=== PATIENT | male | born 1955 | race Caucasian/White ===

== ENCOUNTER 2018-05-02 10:54 | Emergency (ER) | payer OTHER ==
[2018-05-02] MEDS ORDERED: Ibuprofen TAB* 600 MG PO ONE (11:06)
--- NOTE | 2018-05-02 11:17 | ED ---
Back Pain - HPI Summary HPI Summary: Patient is an otherwise healthy 63-year-old male presenting to the ED after a fall at work hitting a steel pipe beam with his lower back. He is endorsing at 5/10 pain to the lumbar spine which she states is approximately 10 cm in width. He denies any other pain or injuries. Denies hitting his head. He does not take any medication [employer]. He does not take any medications at baseline. He states he has otherwise healthy and has never injured his back previously. He was able to ambulate immediately following the accident, worse with flexion and extension, better with rest. Denies any weakness. Denies any bladder or bowel dysfunction. Denies any numbness or tingling bilaterally to the lower extremities. - History of Current Complaint Chief Complaint: EDBackInjuryPain Stated Complaint: FALL BACK PAIN Time Seen by Provider: 05/02/18 10:56 Onset/Duration: Sudden Onset Onset/Duration: Started Minutes Ago Timing: Constant Back Pain Location: Is Discrete @ - low back Severity Initially: Moderate Severity Currently: Moderate Pain Intensity: 6 Pain Scale Used: 0-10 Numeric Character: Aching Aggravating Symptom(s): Movement, Lifting, Bending Alleviating Symptom(s): Rest, Position Associated Signs And Symptoms: Negative: Swelling, Redness, Bruising, Weakness, Numbness Related History: Occupational Injury - Risk Factors AAA Risk Factors: Negative TAD Risk Factors: Negative Cauda Equina Risk Factors: Negative Epidural Abscess Risk Factors: Negative - Allergies/Home Medications Allergies/Adverse Reactions: Allergies Allergy/AdvReac Type Severity Reaction Status Date / Time No Known Allergies Allergy Verified 05/02/18 11:14 PMH/Surg Hx/FS Hx/Imm Hx Previously Healthy: Yes - Immunization History Hx Pertussis Vaccination: No Immunizations Up to Date: Yes Infectious Disease History: No Infectious Disease History: Denies: Traveled Outside the [place] in Last 30 Days - Social History Occupation: Employed Full-time Lives: With Family Alcohol Use: Weekly Hx Substance Use: No Substance Use Type: Reports: None Hx Tobacco Use: Yes Smoking Status (MU): Heavy Every Day Tobacco Smoker Review of Systems Negative: Fever, Chills, Fatigue, Skin Diaphoresis Negative: Palpitations, Chest Pain Negative: Shortness Of Breath, Cough Genitourinary: Negative Positive: no symptoms reported, see HPI Positive: Arthralgia - lower back Negative: Rash, Bruising Neurological: Negative Negative: Weakness, Paresthesia, Numbness All Other Systems Reviewed And Are Negative: Yes Physical Exam Triage Information Reviewed: Yes Vital Signs On Initial Exam: Initial Vitals Temp Pulse Resp BP Pulse Ox 97.5 F 70 16 109/68 98 05/02/18 11:00 05/02/18 11:00 05/02/18 11:00 05/02/18 11:00 05/02/18 11:00 Vital Signs Reviewed: Yes Appearance: Positive: Well-Appearing, Well-Nourished Skin: Positive: Warm, Skin Color Reflects Adequate Perfusion Head/Face: Positive: Normal Head/Face Inspection Eyes: Positive: EOMI, IRIS, Conjunctiva Clear Neck: Positive: Supple, No Lymphadenopathy Respiratory/Lung Sounds: Positive: Clear to Auscultation, Breath Sounds Present Cardiovascular: Positive: Normal, Pulses are Symmetrical in both Upper and Lower Extremities Musculoskeletal: Positive: Pain @ - lower back on palpation - not worse with flexion or extension. no stepoff noted Neurological: Positive: Speech Normal Psychiatric: Positive: Normal, Affect/Mood Appropriate AVPU Assessment: Alert Diagnostics - Vital Signs Vital Signs Temp Pulse Resp BP Pulse Ox 05/02/18 11:00 97.5 F 70 16 109/68 98 - Laboratory Lab Statement: Any lab studies that have been ordered have been reviewed, and results considered in the medical decision making process. Back Pain Course/Dx - Course Course Of Treatment: During the course of treatment, the patient's evaluated for low back pain after hitting a beam with his low back after falling at work. He is endorsing low back pain to the L8 to 9 area. He denies any tailbone pain. Denies any bladder or bowel dysfunction, numbness or tingling or pain otherwise. He did not hit his head, denies any LOC. Lumbar spine CAT scan obtained which shows: Normal lumbar spine. Patient is given note for work and is okay for discharge at this time. Patient ambulating well on discharge. Ibuprofen 600mg given in the ED. - Diagnoses Differential Diagnosis/HQI/PQRI: Positive: Fracture, Strain, Sprain Provider Diagnoses: Back contusion Discharge - Sign-Out/Discharge Documenting (check all that apply): Patient Departure - Discharge Plan Condition: Stable Disposition: HOME Forms: *Work Release Referrals: Luis Carlos Donnelly MD [Medical Doctor] - Additional Instructions: ibuprofen 600mg three times daily Moist heat to the area - Billing Disposition and Condition Condition: STABLE Disposition: Home
[2018-05-02 12:18] VITALS: BP 105/63
== END 2018-05-02 12:17 | disposition home or self-care (01) ==
LOC: ED 10:54
DX: S30.0XXA Contusion of lower back and pelvis, initial encounter (principal); W18.00XA Striking against unspecified object with subsequent fall, initial encounter; Y92.9 Unspecified place or not applicable; Y99.0 Civilian activity done for income or pay; M51.36 Other intervertebral disc degeneration, lumbar region; M47.816 Spondylosis without myelopathy or radiculopathy, lumbar region; F17.200 Nicotine dependence, unspecified, uncomplicated
CPT/HCPCS: 72131; 99282; A9270-GY